=== PATIENT | female | born 1975 | race Caucasian/White ===

== ENCOUNTER 2019-07-22 13:28 | Emergency (ER) | payer SELFPAY ==
--- NOTE | 2019-07-22 14:03 | EDM.PDOC ---
ED HPI GENERAL MEDICAL PROBLEM - General Chief Complaint: Cardiovascular Problem Stated Complaint: HYPERTENSION Time Seen by Provider: 07/22/19 13:59 Source of Information: Reports: Patient History Limitations: Reports: No Limitations - History of Present Illness INITIAL COMMENTS - FREE TEXT/NARRATIVE: HISTORY AND PHYSICAL: History of present illness: Patient is a 43-year-old female presents to the ED with personal banking officer for concern of high blood pressure. Patient states that she has been at her blood pressure medication past 3 days as she has been in [facility]. She is uncertain what medication she takes and she has never filled here. As I am talking to the patient, another personal banking officer entered the room to inform patient she is being released from [facility]. Patient states she will be able to go [employer] spot picker her blood pressure medication now. she has no other complaints and denies chest pain , SOB, headache. Review of systems: As per history of present illness and below otherwise all systems reviewed and negative. Past medical history: As per history of present illness and as reviewed below otherwise noncontributory. Surgical history: As per history of present illness and as reviewed below otherwise noncontributory. Social history: No reported history of drug or alcohol abuse. Family history: As per history of present illness and as reviewed below otherwise noncontributory. Physical exam: General: Patient sitting comfortably in no acute distress and nontoxic appearing HEENT: Atraumatic, normocephalic, pupils reactive, negative for conjunctival pallor or scleral icterus, mucous membranes moist, throat clear, neck supple, nontender, trachea midline. No meningeal signs. Lungs: Clear to auscultation, breath sounds equal bilaterally, chest nontender. Heart: S1S2, regular, negative for clicks, rubs, or overt murmur. Abdomen: Soft, nondistended, nontender. Negative for masses or hepatosplenomegaly. Negative for costovertebral tenderness. No rigidity, rebound , guarding. Pelvis: Stable nontender. Genitourinary: Deferred. Rectal: Deferred. Extremities: Atraumatic, negative for cords or calf pain. Neurovascular unremarkable. Neuro: Awake, alert, oriented. Cranial nerves II through XII unremarkable. Cerebellum unremarkable. Motor and sensory unremarkable throughout. Exam nonfocal. Notes: Diagnostics: [] Therapeutics: [] Prescriptions: Impression: Medical screening exam Plan: Follow up with primary care provider Return to ED as needed as discussed Definitive disposition and diagnosis as appropriate pending reevaluation and review of above. Headache Pain Score (Numeric/FACES): 6 - Related Data Allergies Allergy/AdvReac Type Severity Reaction Status Date / Time codeine Allergy Itching Verified 07/22/19 13:50 Past Medical History Cardiovascular History: Reports: Hypertension Oncologic (Cancer) History: Reports: Uterine - Infectious Disease History Infectious Disease History: Reports: Chicken Pox, Hepatitis C Social & Family History - Family History Family Medical History: Noncontributory - Tobacco Use Smoking Status *Q: Never Smoker - Recreational Drug Use Recreational Drug Use: Yes Drug Use in Last 12 Months: Yes Recreational Drug Type: Reports: Marijuana/Hashish Recreational Drug Use Frequency: Socially ED ROS GENERAL - Review of Systems Review Of Systems: Comprehensive ROS is negative, except as noted in HPI. ED EXAM, GENERAL - Physical Exam Exam: See Below (see dictation) Course - Vital Signs Last Recorded V/S: Last Vital Signs Temp 97.2 F 07/22/19 13:46 Pulse 82 07/22/19 13:46 Resp 18 07/22/19 13:46 BP 150/90 H 07/22/19 13:46 Pulse Ox 98 07/22/19 13:46 - Orders/Labs/Meds Orders: Active Orders 24 hr Category Date Time Status EKG Documentation Completion [RC] STAT Care 07/22/19 13:54 Active Departure - Departure Time of Disposition: 13:59 Disposition: Home, Self-Care 01 Condition: Good Clinical Impression: General medical exam Referrals: PCP,None [Primary Care Provider] - Additional Instructions: The following information is given to patients seen in the emergency department who are being discharged to home. This information is to outline your options for follow-up care. We provide all patients seen in our emergency department with a follow-up referral. The need for follow-up, as well as the timing and circumstances, are variable depending upon the specifics of your emergency department visit. If you don't have a primary care physician on staff, we will provide you with a referral. We always advise you to contact your personal physician following an emergency department visit to inform them of the circumstance of the visit and for follow-up with them and/or the need for any referrals to a consulting specialist. The emergency department will also refer you to a specialist when appropriate. This referral assures that you have the opportunity for follow-up care with a specialist. All of these measure are taken in an effort to provide you with optimal care, which includes your follow-up. Under all circumstances we always encourage you to contact your private physician who remains a resource for coordinating your care. When calling for follow-up care, please make the office aware that this follow-up is from your recent emergency room visit. If for any reason you are refused follow-up, please contact the [facility] Emergency Department at and asked to speak to the emergency department charge nurse. [facility] [address] [place] [address] [id number] [facility] [address] [place] [id number] Follow up with primary care provider Return to ED as a discussed - My Orders Last 24 Hours: My Active Orders 07/22/19 13:54 EKG Documentation Completion [RC] STAT - Assessment/Plan Last 24 Hours: My Active Orders 07/22/19 13:54 EKG Documentation Completion [RC] STAT
== END 2019-07-22 14:11 | disposition home or self-care (01) ==
LOC: MW.ED 13:28
DX: Z13.9 Encounter for screening, unspecified (principal); I10 Essential (primary) hypertension; Z88.5 Allergy status to narcotic agent
CPT/HCPCS: 99283

== ENCOUNTER 2019-07-25 19:04 | Emergency (ER) | payer SELFPAY ==
[2019-07-25] MEDS ORDERED: Hydrochlorothiazide 25 MG Tab PO ONE (19:15)
[2019-07-25] MEDS ORDERED: cloNIDine 0.1 MG Tab PO ONE ×2 (19:15→20:00)
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
[2019-07-25 20:04] LABS: POTASSIUM,K 3.5 mmol/L (3.5-5.1)
== END 2019-07-25 20:55 | disposition home or self-care (01) ==
LOC: MW.ED 19:04
DX: N39.0 Urinary tract infection, site not specified (principal); I10 Essential (primary) hypertension; Z91.14 Patient's other noncompliance with medication regimen; Z88.5 Allergy status to narcotic agent
CPT/HCPCS: 36415; 80053; 81001; 81025; 84484; 85025; 87086; 93005; 99284; A9270

== ENCOUNTER 2019-08-14 13:32 | Emergency (ER) | payer SELFPAY ==
--- NOTE | 2019-08-14 13:41 | EDM.PDOC ---
ED HPI GENERAL MEDICAL PROBLEM - General Chief Complaint: Skin Complaint Stated Complaint: CELLULITUS Time Seen by Provider: 08/14/19 13:39 Source of Information: Reports: Patient History Limitations: Reports: No Limitations - History of Present Illness INITIAL COMMENTS - FREE TEXT/NARRATIVE: HISTORY AND PHYSICAL: History of present illness: Patient is a 43-year-old female presents to the ED with complaint of possible cellulitis. She states she has redness on her lower legs bilaterally for the past few days. She states on the right leg it is warm and painful to touch. She reports wearing tight socks just prior to the rash starting. She denies fevers, chills, nausea, vomiting, chest pain, shortness of breath, lower extremity injury. Past medical history significant for hypertension. Review of systems: As per history of present illness and below otherwise all systems reviewed and negative. Past medical history: As per history of present illness and as reviewed below otherwise noncontributory. Surgical history: As per history of present illness and as reviewed below otherwise noncontributory. Social history: No reported history of drug or alcohol abuse. Family history: As per history of present illness and as reviewed below otherwise noncontributory. Physical exam: General: Patient sitting comfortably in no acute distress and nontoxic appearing HEENT: Atraumatic, normocephalic, pupils reactive, negative for conjunctival pallor or scleral icterus, mucous membranes moist, throat clear, neck supple, nontender, trachea midline. No meningeal signs. Lungs: Clear to auscultation, breath sounds equal bilaterally, chest nontender. Heart: S1S2, regular, negative for clicks, rubs, or overt murmur. Abdomen: Soft, nondistended, nontender. Negative for masses or hepatosplenomegaly. Negative for costovertebral tenderness. No rigidity, rebound , guarding. Pelvis: Stable nontender. Genitourinary: Deferred. Rectal: Deferred. Skin: Petechial rash to the lower extremities bilaterally. There is an area of slight swelling, warmth, and tenderness to the right posterior lower leg. Extremities: Atraumatic, negative for cords or calf pain. Neurovascular unremarkable. Neuro: Awake, alert, oriented. Cranial nerves II through XII unremarkable. Cerebellum unremarkable. Motor and sensory unremarkable throughout. Exam nonfocal. Notes: Diagnostics: Right venous doppler US Therapeutics: [] Prescriptions: Keflex Impression: Rash, cellulitis Definitive disposition and diagnosis as appropriate pending reevaluation and review of above. lower bilat leg Pain Score (Numeric/FACES): 7 - Related Data Allergies Allergy/AdvReac Type Severity Reaction Status Date / Time codeine Allergy Itching Verified 08/14/19 13:42 Home Meds: Home Meds cephALEXin [Keflex] 500 mg PO Q8H 7 Days #21 cap 08/14/19 [Rx] Past Medical History Cardiovascular History: Reports: Hypertension Oncologic (Cancer) History: Reports: Uterine - Infectious Disease History Infectious Disease History: Reports: Chicken Pox, Hepatitis C - Past Surgical History Female Surgical History: Reports: Hysterectomy Social & Family History - Family History Family Medical History: Noncontributory ED ROS GENERAL - Review of Systems Review Of Systems: Comprehensive ROS is negative, except as noted in HPI. ED EXAM, SKIN/RASH Exam: See Below (see dictation) Course - Vital Signs Last Recorded V/S: Last Vital Signs Temp 96.6 F 08/14/19 13:38 Pulse 108 H 08/14/19 13:38 Resp 20 08/14/19 13:38 BP 150/70 H 08/14/19 13:38 Pulse Ox 98 08/14/19 13:38 Departure - Departure Time of Disposition: 14:54 Disposition: Home, Self-Care 01 Condition: Good Clinical Impression: Rash, Cellulitis - Discharge Information Prescriptions: cephALEXin [Keflex] 500 mg PO Q8H 7 Days #21 cap Referrals: PCP,None [Primary Care Provider] - Forms: ED Department Discharge Additional Instructions: The following information is given to patients seen in the emergency department who are being discharged to home. This information is to outline your options for follow-up care. We provide all patients seen in our emergency department with a follow-up referral. The need for follow-up, as well as the timing and circumstances, are variable depending upon the specifics of your emergency department visit. If you don't have a primary care physician on staff, we will provide you with a referral. We always advise you to contact your personal physician following an emergency department visit to inform them of the circumstance of the visit and for follow-up with them and/or the need for any referrals to a consulting specialist. The emergency department will also refer you to a specialist when appropriate. This referral assures that you have the opportunity for follow-up care with a specialist. All of these measure are taken in an effort to provide you with optimal care, which includes your follow-up. Under all circumstances we always encourage you to contact your private physician who remains a resource for coordinating your care. When calling for follow-up care, please make the office aware that this follow-up is from your recent emergency room visit. If for any reason you are refused follow-up, please contact the [facility] Emergency Department at and asked to speak to the emergency department charge nurse. [facility] [address] [place] [id number] [address] Take antibiotic as instructed Follow up with primary care provider return to ED as needed as discussed Sepsis Event Note - Focused Exam Vital Signs: Vital Signs Temp Pulse Resp BP Pulse Ox 08/14/19 13:38 96.6 F 108 H 20 150/70 H 98 Date Exam was Performed: 08/14/19 Time Exam was Performed: 14:54
--- NOTE | 2019-08-14 14:53 | US ---
EXAM DATE: 08/14/19 PATIENT'S AGE: 43 Right lower extremity deep venous ultrasound: Duplex and color Doppler evaluation was obtained of the right common femoral, superficial femoral, popliteal, posterior tibial and anterior tibial veins. Subcutaneous edema noted within the right calf. Normal augmentation and compression is seen within the deep veins. Impression: 1. Subcutaneous edema within the right. 2. No findings of deep venous thrombosis is seen within the right lower extremity. Diagnostic code #2 This report was dictated in [place] Standard Time Report Signed by Proxy. VIRGILIO
== END 2019-08-14 15:10 | disposition home or self-care (01) ==
LOC: MW.ED 13:32
DX: L03.115 Cellulitis of right lower limb (principal); R23.3 Spontaneous ecchymoses; I10 Essential (primary) hypertension; Z88.5 Allergy status to narcotic agent
CPT/HCPCS: 93971-26-RT; 93971-RT; 99283; 99283-25

== ENCOUNTER 2019-08-26 19:37 | Emergency (ER) | payer MEDICAID, OTHER ==
--- NOTE | 2019-08-26 21:29 | CR ---
INDICATIONS: Bilateral lower extremity swelling. TECHNIQUE: Chest 1 view. COMPARISON: None FINDINGS: No pneumothorax, pleural effusion or airspace consolidation. No pulmonary edema. Cardiac and mediastinal contours are within normal limits. Upper abdomen and osseous structures as imaged show no acute abnormality. IMPRESSION: No evidence of acute cardiopulmonary disease. Dictated by Juan Lorenzo MD @ 08/26/2019 9:28:07 PM Dictated by: Juan Lorenzo MD @ 08/26/2019 21:28:12 (Electronically Signed)
[2019-08-26] MEDS ORDERED: Sodium Chloride 0.9% 500 ML IV SCH (21:45)
[2019-08-26 22:26] LABS: BLOOD UREA NITROGEN,BUN 17 mg/dL (7.0-18.0); CARBON DIOXIDE,CO2 24.6 mmol/L (21.0-32.0); CHLORIDE,CL 100 mmol/L (98-107); GLUCOSE RANDOM 84 mg/dL (74-106); POTASSIUM,K 3.3 mmol/L (3.5-5.1); SODIUM,NA 138 mmol/L (136-145)
--- NOTE | 2019-08-26 23:50 | EDM.PDOC ---
ED HPI GENERAL MEDICAL PROBLEM - General Chief Complaint: Lower Extremity Injury/Pain Stated Complaint: POSSIBLE INFECTION Time Seen by Provider: 08/26/19 19:43 Left Leg Pain Score (Numeric/FACES): 8 - Related Data Allergies Allergy/AdvReac Type Severity Reaction Status Date / Time codeine Allergy Itching Verified 08/26/19 19:45 Home Meds: Home Meds Non-Formulary Medication [NF Drug] 1 each PO DAILY 08/26/19 [History] Past Medical History Cardiovascular History: Reports: Hypertension Oncologic (Cancer) History: Reports: Uterine - Infectious Disease History Infectious Disease History: Reports: Chicken Pox - Past Surgical History GI Surgical History: Reports: Appendectomy Female Surgical History: Reports: Hysterectomy Social & Family History - Family History Family Medical History: Noncontributory - Tobacco Use Smoking Status *Q: Never Smoker - Caffeine Use Caffeine Use: Reports: Coffee, Tea - Recreational Drug Use Recreational Drug Use: No Review of Systems - Review of Systems Review Of Systems: See Below Constitutional: Reports: No Symptoms Ears: Reports: No Symptoms Nose: Reports: No Symptoms Mouth/Throat: Reports: No Symptoms Respiratory: Reports: No Symptoms Cardiovascular: Reports: Edema, Lightheadedness GI/Abdominal: Reports: No Symptoms Genitourinary: Reports: No Symptoms Musculoskeletal: Reports: Joint Pain, Joint Swelling Neurological: Reports: No Symptoms Psychiatric: Reports: No Symptoms ED EXAM, GENERAL - Physical Exam Exam: See Below Exam Limited By: No Limitations General Appearance: Alert, WD/WN, No Apparent Distress Eye Exam: Bilateral Eye: Normal Fundi, Normal Inspection Nose: Normal Inspection, Normal Mucosa, No Blood Throat/Mouth: Normal Inspection, Normal Lips, Normal Oropharynx Head: Atraumatic Neck: Normal Inspection Respiratory/Chest: No Respiratory Distress, Lungs Clear, Normal Breath Sounds, No Accessory Muscle Use Cardiovascular: Normal Peripheral Pulses, Regular Rate, Rhythm GI/Abdominal: Normal Bowel Sounds, Soft, No Distention, No Abnormal Bruit (Female) Exam: Deferred Back Exam: Normal Inspection, Full Range of Motion Extremities: Normal Inspection, Joint Swelling, Leg Pain Neurological: Alert, Oriented, Normal Cognition, Normal Gait, Normal Reflexes, No Motor/Sensory Deficits Psychiatric: Normal Affect Skin Exam: Warm, Dry, Intact, Normal Color Course - Vital Signs Last Recorded V/S: Last Vital Signs Temp 97.1 F 12/23/19 21:15 Pulse 87 08/26/19 21:15 Resp 18 08/26/19 21:15 BP 162/87 H 08/26/19 21:15 Pulse Ox 98 08/26/19 21:15 - Orders/Labs/Meds Orders: Active Orders 24 hr Category Date Time Status CULTURE BLOOD [BC] Stat Lab 08/26/19 21:55 Received CULTURE BLOOD [BC] Stat Lab 08/26/19 22:08 Received Sodium Chloride 0.9% [Normal Saline] 500 ml Med 08/26/19 21:45 Active IV .BOLUS Blood Culture x2 Reflex Set [OM.PC] Stat Oth 08/26/19 20:14 Ordered Saline Lock Insert [OM.PC] Stat Oth 08/26/19 20:14 Ordered Medication Orders Sodium Chloride (Normal Saline) 500 mls @ 500 mls/hr IV .BOLUS BECCA Last Admin: 08/26/19 21:45 Dose: 500 mls/hr Labs: Laboratory Tests 08/26/19 08/26/19 08/26/19 Range/Units 21:15 21:15 21:15 WBC 10.68 (4.0-11.0) K/uL RBC 3.37 L (4.30-5.90) M/uL Hgb 9.5 L (12.0-16.0) g/dL Hct 29.0 L (36.0-46.0) % MCV 86.1 (80.0-98.0) fL MCH 28.2 (27.0-32.0) pg MCHC 32.8 (31.0-37.0) g/dL RDW Std Deviation 43.5 (28.0-62.0) fl RDW Coeff of Johnny 14 (11.0-15.0) % Plt Count 440 H (150-400) K/uL MPV 9.70 (7.40-12.00) fL Neut % (Auto) 56.4 (48.0-80.0) % Lymph % (Auto) 32.2 (16.0-40.0) % Coke % (Auto) 8.4 (0.0-15.0) % Eos % (Auto) 2.6 (0.0-7.0) % Baso % (Auto) 0.4 (0.0-1.5) % Neut # (Auto) 6.0 H (1.4-5.7) K/uL Lymph # (Auto) 3.4 H (0.6-2.4) K/uL Coke # (Auto) 0.9 H (0.0-0.8) K/uL Eos # (Auto) 0.3 (0.0-0.7) K/uL Baso # (Auto) 0.0 (0.0-0.1) K/uL Nucleated RBC % 0.0 /100WBC Nucleated RBCs # 0 K/uL Sodium 138 (136-145) mmol/L Potassium 3.3 L (3.5-5.1) mmol/L Chloride 100 (98-107) mmol/L Carbon Dioxide 24.6 (21.0-32.0) mmol/L BUN 17 (7.0-18.0) mg/dL Creatinine 1.0 (0.6-1.0) mg/dL Est Cr Clr Drug Dosing 65.95 mL/min Estimated GFR (MDRD) > 60.0 ml/min Glucose 84 (74-106) mg/dL Calcium 9.2 (8.5-10.1) mg/dL Total Bilirubin 0.7 (0.2-1.0) mg/dL AST 61 H (15-37) IU/L ALT 95 H (14-63) IU/L Alkaline Phosphatase 205 H (46-116) U/L B-Natriuretic Peptide 12 (<100) PG/ML Total Protein 8.7 H (6.4-8.2) g/dL Albumin 3.7 (3.4-5.0) g/dL Globulin 5.0 H (2.6-4.0) g/dL Albumin/Globulin Ratio 0.7 L (0.9-1.6) Meds: Medications Generic Name Dose Route Start Last Admin Trade Name Freq PRN Reason Stop Dose Admin Sodium Chloride 500 mls @ 500 mls/hr 08/26/19 21:45 08/26/19 21:45 Normal Saline IV 500 mls/hr .BOLUS BECCA Administration Departure - Departure Time of Disposition: 23:49 Disposition: Home, Self-Care 01 Condition: Good Clinical Impression: Abnormal liver enzymes, Pedal edema - Discharge Information Referrals: PCP,None [Primary Care Provider] - Sepsis Event Note - Evaluation Sepsis Screening Result: No Definite Risk - Focused Exam Vital Signs: Vital Signs Temp Pulse Resp BP Pulse Ox 08/26/19 21:15 97.1 F 87 18 162/87 H 98 08/26/19 19:47 97.3 F 94 19 171/92 H 99 Date Exam was Performed: 08/26/19 Time Exam was Performed: 23:46 - My Orders Last 24 Hours: My Active Orders 08/26/19 20:14 Blood Culture x2 Reflex Set [OM.PC] Stat Saline Lock Insert [OM.PC] Stat 08/26/19 21:45 Sodium Chloride 0.9% [Normal Saline] 500 ml IV .BOLUS 08/26/19 21:55 CULTURE BLOOD [BC] Stat 08/26/19 22:08 CULTURE BLOOD [BC] Stat - Assessment/Plan Last 24 Hours: My Active Orders 08/26/19 20:14 Blood Culture x2 Reflex Set [OM.PC] Stat Saline Lock Insert [OM.PC] Stat 08/26/19 21:45 Sodium Chloride 0.9% [Normal Saline] 500 ml IV .BOLUS 08/26/19 21:55 CULTURE BLOOD [BC] Stat 08/26/19 22:08 CULTURE BLOOD [BC] Stat
== END 2019-08-27 00:05 | disposition home or self-care (01) ==
LOC: MW.ED 19:37
DX: R60.0 Localized edema (principal); R94.5 Abnormal results of liver function studies; I10 Essential (primary) hypertension; Z88.5 Allergy status to narcotic agent
CPT/HCPCS: 36415; 71045; 80053; 83880; 85025; 87040; 96360; 99283; J7040

== ENCOUNTER 2019-10-05 15:24 | Emergency (ER) | payer MEDICAID ==
--- NOTE | 2019-10-05 16:14 | EDM.PDOC ---
ED HPI GENERAL MEDICAL PROBLEM - General Chief Complaint: Lower Extremity Injury/Pain Stated Complaint: ANKLE SWELLING,RASH Time Seen by Provider: 10/05/19 15:45 Source of Information: Reports: Patient History Limitations: Reports: No Limitations - History of Present Illness INITIAL COMMENTS - FREE TEXT/NARRATIVE: HISTORY AND PHYSICAL: History of present illness: Patient is a 43-year-old female who presents to the emergency room today with complaints of left ankle swelling and rash. She reports approximately 3 days ago she had slipped and fallen on the ice several times and is concerned she may have rolled her left ankle. She states she normally does have pitting lower extremity edema and is supposed to be on HCTZ, although due to a mixup in the pharmacy has not had this medication filled. She states since her fall she has had what she believes is increased swelling to the left side along with localized redness to the lateral and medial malleolus. She was seen in our emergency room for similar concerns of the swelling and redness and at that time was diagnosed with cellulitis. She was given a short course of Keflex and states that this did improve her symptoms. Patient denies any fever, chills, headache, change in vision, syncope or near syncope. Denies any chest pain, back pain, shortness of breath or cough. Denies any GI or symptoms. patient has been eating and drinking appropriately. Review of systems: As per history of present illness and below otherwise all systems reviewed and negative. Past medical history: As per history of present illness and as reviewed below otherwise noncontributory. Surgical history: As per history of present illness and as reviewed below otherwise noncontributory. Social history: See social history for further information Family history: As per history of present illness and as reviewed below otherwise noncontributory. Physical exam: General: Well-developed and well-nourished 43-year-old female. Alert and oriented. Nontoxic-appearing and in no acute distress. HEENT: Atraumatic, normocephalic, pupils equal and reactive bilaterally, negative for conjunctival pallor or scleral icterus, mucous membranes moist, TMs normal bilaterally, throat clear, neck supple, nontender, trachea midline. No drooling or trismus noted. No meningeal signs. No hot potato voice noted. Lungs: Clear to auscultation, breath sounds equal bilaterally, chest nontender. Heart: S1S2, regular rate and rhythm without overt murmur Abdomen: Soft, nondistended, nontender. Skin: Diffuse erythema noted to the medial and lateral malleolus on the left ankle which does appear like early cellulitis. Remaining skin is intact, warm, dry. No lesions or rashes noted. Extremities: Moves all extremities per self without difficulty or deficits, negative for cords or calf pain. +2 pitting edema to bilateral ankles/feet. Strong pedal pulses bilat. +CMS, cap refill less than 3 seconds. Neurovascular unremarkable. Neuro: Awake, alert, oriented. Cranial nerves II through XII unremarkable. Cerebellum unremarkable. Motor and sensory unremarkable throughout. Exam nonfocal. Notes: Patient does have swelling bilaterally to the lower extremities, equal. She states with her history of high blood pressure her primary care provider had been prescribing her hydrochlorothiazide. She states there was a mixup in her last name at the pharmacy and she was not able to get a hold of her PCP to have them call in a new prescription. She states that the swelling typically does improve when she is able to take this medication. I will refill this medication with the understanding that she will have further refills through her PCP. The "rash" that she has to her left ankle does appear like an early cellulitis. She states previously she wore JAIRO hose due to her edema but has not over the past several months due to a previous cellulitis that she felt these were caused by. X-ray shows no acute fractures, soft tissue swelling is noted. Supportive care measures were reviewed and discussed. Voices understanding and is agreeable to plan of care. Denies any further questions or concerns at this time. Diagnostics: X-ray Therapeutics: None Prescription: HCTZ Keflex Impression: Peda Edema Cellulitis Plan: 1. Keep the skin clean and dry. Continue to monitor for signs of improvement. Take the medication as direction. 2. Can take Tylenol and/or ibuprofen as needed for pain management. 3. Follow up with Allen Sanchez as we discussed. 4. Return to the ED as needed as discussed. Definitive disposition and diagnosis as appropriate pending reevaluation and review of above. bilat ankles Pain Score (Numeric/FACES): 6 - Related Data Allergies Allergy/AdvReac Type Severity Reaction Status Date / Time codeine Allergy Itching Verified 10/05/19 15:56 Home Meds: Home Meds amLODIPine Besylate [Norvasc] 2.5 mg PO DAILY 10/05/19 [History] cephALEXin [Keflex] 500 mg PO TID 7 Days #21 cap 10/05/19 [Rx] hydroCHLOROthiazide [Hydrochlorothiazide] 12.5 mg PO DAILY #30 tablet 10/05/19 [ Rx] Past Medical History Cardiovascular History: Reports: Hypertension Oncologic (Cancer) History: Reports: Uterine - Infectious Disease History Infectious Disease History: Reports: Chicken Pox - Past Surgical History GI Surgical History: Reports: Appendectomy Female Surgical History: Reports: Hysterectomy Social & Family History - Family History Family Medical History: Noncontributory - Tobacco Use Smoking Status *Q: Unknown Ever Smoked - Caffeine Use Caffeine Use: Reports: Coffee, Tea Review of Systems - Review of Systems Review Of Systems: Comprehensive ROS is negative, except as noted in HPI. ED EXAM, GENERAL - Physical Exam Exam: See Below (See dictation) Course - Vital Signs Last Recorded V/S: Last Vital Signs Temp 97.6 F 10/05/19 15:54 Pulse 89 10/05/19 15:54 Resp 18 10/05/19 15:54 BP 159/90 H 10/05/19 15:54 Pulse Ox 98 10/05/19 15:54 Departure - Departure Time of Disposition: 16:15 Disposition: Home, Self-Care 01 Clinical Impression: Pedal edema Cellulitis Qualifiers: Site of cellulitis: extremity Site of cellulitis of extremity: lower extremity Laterality: left Qualified Code(s): L03.116 - Cellulitis of left lower limb - Discharge Information Prescriptions: cephALEXin [Keflex] 500 mg PO TID 7 Days #21 cap hydroCHLOROthiazide [Hydrochlorothiazide] 12.5 mg PO DAILY #30 tablet Referrals: Marisa De Anda [Primary Care Provider] - Forms: ED Department Discharge Additional Instructions: The following information is given to patients seen in the emergency department who are being discharged to home. This information is to outline your options for follow-up care. We provide all patients seen in our emergency department with a follow-up referral. The need for follow-up, as well as the timing and circumstances, are variable depending upon the specifics of your emergency department visit. If you don't have a primary care physician on staff, we will provide you with a referral. We always advise you to contact your personal physician following an emergency department visit to inform them of the circumstance of the visit and for follow-up with them and/or the need for any referrals to a consulting specialist. The emergency department will also refer you to a specialist when appropriate. This referral assures that you have the opportunity for follow-up care with a specialist. All of these measure are taken in an effort to provide you with optimal care, which includes your follow-up. Under all circumstances we always encourage you to contact your private physician who remains a resource for coordinating your care. When calling for follow-up care, please make the office aware that this follow-up is from your recent emergency room visit. If for any reason you are refused follow-up, please contact the [facility] at and asked to speak to the emergency department charge nurse. [facility] [address] [place] [id number] [facility] [address] [place] [id number] 1. Keep the skin clean and dry. Continue to monitor for signs of improvement. Take the medication as direction. 2. Can take Tylenol and/or ibuprofen as needed for pain management. 3. Follow up with Allen Sanchez as we discussed. 4. Return to the ED as needed as discussed. Sepsis Event Note - Evaluation Sepsis Screening Result: No Definite Risk - Focused Exam Vital Signs: Vital Signs Temp Pulse Resp BP Pulse Ox 10/05/19 15:54 97.6 F 89 18 159/90 H 98 Date Exam was Performed: 10/05/19 Time Exam was Performed: 16:42
--- NOTE | 2019-10-05 16:40 | CR ---
Left ankle: 3 views left ankle were obtained. Comparison: No previous ankle study is available. Plantar spur is noted. Ankle mortise is symmetric. No acute fracture, dislocation or other bony abnormality is seen. Soft tissue swelling appears to be present. Impression: 1. Soft tissue swelling. 2. Bony spur. 3. No acute bony abnormality is seen. Diagnostic code #2 Study was dictated in [place] Standard Time
== END 2019-10-05 16:54 | disposition home or self-care (01) ==
LOC: MW.ED 15:24
DX: R60.0 Localized edema (principal); L03.116 Cellulitis of left lower limb; I10 Essential (primary) hypertension; Z88.5 Allergy status to narcotic agent; Z79.899 Other long term (current) drug therapy; W00.0XXA Fall on same level due to ice and snow, initial encounter
CPT/HCPCS: 73610-26-LT; 73610-LT; 99283-25